=== PATIENT | male | born 1975 | race Caucasian/White ===

== ENCOUNTER 2017-10-05 16:59 | Emergency (ER) | payer SELFPAY ==
[~2017-10-05] VITALS: Ht 175.3 cm; Wt 77.1 kg
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
--- NOTE | 2017-10-05 17:49 | Diagnostic Imaging Report ---
PROCEDURE: CT head and CT cervical spine without contrast. TECHNIQUE: Multiple contiguous axial images were obtained through the brain and cervical spine without the use of intravenous contrast. Sagittal and coronal reformations through the cervical spine were then performed. INDICATION: Syncopal episode with fall and laceration to left frontal region. COMPARISON: None available. FINDINGS: CT HEAD: Left supraorbital focal scalp swelling and small subcutaneous hematoma. There is no acute skull fracture. No acute intracranial hemorrhage. Basilar cisterns remain widely patent. No evidence of a territorial infarct. No hydrocephalus or space-occupying mass. Mastoid air cells are clear. Paranasal sinuses are also clear. CT CERVICAL SPINE: There is no acute fracture or traumatic malalignment in the cervical spine. Visualized aspects of the thyroid are normal. No cervical lymphadenopathy. No evidence of high-grade/critical spinal stenosis. Craniocervical junction is normal in alignment. IMPRESSION: 1. No acute intracranial hemorrhage or acute skull fracture. 2. No acute fracture or traumatic malalignment of the cervical spine. 3. Left supraorbital scalp swelling with small subcutaneous hematoma. Dictated by: Dictated on workstation # [id number]
[2017-10-05] MEDS ORDERED: RX-ONDANSETRON 4 MG ODT (ZOFRAN) PPK #4 PO STA (17:53)
[2017-10-05 17:56] VITALS: BP 142/98
== END 2017-10-05 17:56 | disposition home or self-care (01) ==
LOC: ER 17:00
DX: S06.0X9A Concussion with loss of consciousness of unspecified duration, initial encounter (principal); W17.89XA Other fall from one level to another, initial encounter
CPT/HCPCS: 70450; 72125; 99283

== ENCOUNTER 2021-07-04 12:47 | Outpatient (CLI) | payer MEDICAID, OTHER ==
[~2021-07-04] VITALS: Ht 175.3 cm; Wt 79.3 kg
[2021-07-04] MEDS ORDERED: LAMO100T65 PO (14:53)
[2021-07-04] MEDS ORDERED: FLUO10CA31 PO (14:53)
[2021-07-04] MEDS ORDERED: CLON1TAB PO (14:53)
[2021-07-04] MEDS ORDERED: FOLI-88 PO (14:54)
== END 2021-07-04 16:01 | disposition home or self-care (01) ==
LOC: PREOP 12:47
PROVIDERS: ATTEND Surgery
DX: Z01.818 Encounter for other preprocedural examination (principal)

== ENCOUNTER 2021-07-11 10:21 | Day surgery (SDC) | payer MEDICAID, OTHER ==
[~2021-07-11] VITALS: Ht 175.3 cm; Wt 79.3 kg
[~2021-07-11 10:21] MED LIST: CLON1TAB PO; FLUO10CA31 PO; FOLI-88 PO; LAMO100T65 PO
[2021-07-11] MEDS ORDERED: LACTATED RINGERS 1,000 ML IV ONE (10:24)
[2021-07-11] MEDS ORDERED: LACTATED RINGERS 1,000 ML IV STA (10:26)
[2021-07-11] MEDS ORDERED: LIDOCAINE JELLY 2% 6 ML SYRINGE MM PRN (10:30)
[2021-07-11 10:32] VITALS: BP 117/74
[2021-07-11] MEDS ORDERED: MIDAZOLAM 2 MG/2 ML (VERSED) VIAL ONE (10:32)
[2021-07-11] MEDS ORDERED: PROPOFOL INJECTION 50 ML IV ONE ×2 (10:32→11:05)
--- NOTE | 2021-07-11 10:32 | Progress Note-Pre Operative ---
Pre-Operative Progress Note H&P Reviewed The H&P was reviewed, patient examined and no changes noted. Date Seen by Provider: Jul 11, 2021 Time Seen by Provider: 10: Date H&P Reviewed: Jul 11, 2021 Time H&P Reviewed: : Pre-Operative Diagnosis: screening colo/FH ARAVIND CHA MD Jul 11, 2021 10:32
--- NOTE | 2021-07-11 10:33 | Discharge Inst-Surgical ---
D/C Lap Instructions-STARLA Follow Up Activity as tolerated High Fiber Diet 25g or more per day Avoid Alcohol, Caffeine, Spicy [place] and Acid foods. Drink 64 fluid oz or more of fluids per day. Symptoms to Report: Fever over 101 degree F, Nausea/Vomiting If any problems/questions: Contact your physician or go to Emergency Room ARAVIND CHA MD Jul 11, 2021 10:33
[2021-07-11] MEDS ORDERED: ONDANSETRON 4 MG (ZOFRAN) ORAL DISSOLVE TAB PO PRN (10:45)
[2021-07-11] MEDS ORDERED: ONDANSETRON 4 MG/2 ML (SDV) Z0FRAN IVP PRN (10:45)
[2021-07-11 11:20] VITALS: BP 108/64
[2021-07-11 11:25] VITALS: BP 95/53
--- NOTE | 2021-07-11 11:28 | Progress Note-Post Operative ---
Post-Operative Progess Note Surgeon (s)/Laser Machine Operator (s) Surgeon ARAVIND CHA MD Laser Machine Operator: none Pre-Operative Diagnosis screening colo/FH Post-Operative Diagnosis mild chronic stage 2 ext and int hemorrhoids. Procedure & Operative Findings Date of Procedure 07/11/21 Procedure Performed/Findings colonoscopy Anesthesia Type mac Estimated Blood Loss Estimated blood loss (mL): minimal Specimens/Packing Specimens Removed none ARAVIND CHA MD Jul 11, 2021 11:28
[2021-07-11 11:29] VITALS: BP 96/56
[2021-07-11 11:35] VITALS: BP_SYST 102; BP_SYST 97; BP_DIAS 60; BP_DIAS 61
[2021-07-11 12:01] VITALS: BP 100/71
--- NOTE | 2021-07-11 14:45 | Anesthesia-General Post-Op ---
MAC Patient Condition Mental Status/LOC: Same as Preop Cardiovascular: Satisfactory Nausea/Vomiting: Absent Respiratory: Satisfactory Pain: Controlled Complications: Absent Post Op Complications Complications None Follow Up Care/Instructions Patient Instructions None needed. Anesthesiology Discharge Order Discharge Order Patient is doing well, no complaints, stable vital signs, no apparent adverse anesthesia problems. No complications reported per nursing. ROSANNA AGUIRRE CRNA Jul 11, 2021 14:45
--- NOTE | 2021-07-11 16:58 | OPERATIVE REPORT ---
DATE OF SERVICE: 07/11/2021 ATTENDING PRIMARY CARE PHYSICIAN: Diana Brewer DO PREOPERATIVE DIAGNOSIS: Screening colonoscopy with family history of colon cancer. POSTOPERATIVE DIAGNOSIS: Mild chronic stage II external and internal hemorrhoids. PROCEDURE: Colonoscopy. SURGEON: Aravind Perez MD ANESTHESIA: Monitored anesthesia care. ESTIMATED BLOOD LOSS: Minimal. FINDINGS: Same as postoperative diagnosis. DISPOSITION: The patient tolerated the procedure well. INDICATIONS: The patient is a 45-year-old male in need of screening colonoscopy. His last colonoscopy was 5 years ago where he was found to have a few polyps, which were biopsied and found to be benign. He does report a family history of colon cancer with his father having the disease. He does not report any major issues with diarrhea, no constipation as well as no red blood per rectum nor any dark tarry stools. DESCRIPTION OF PROCEDURE: The patient was brought to the endoscopy suite, laid in the left lateral decubitus position. After adequate IV pain and sedative medications and monitored anesthesia care, the mouthpiece was applied. A digital rectal examination was performed, which revealed chronic stage II external and internal hemorrhoids, not actively edematous nor inflamed and no bleeding. Normal sphincter tone was felt and there were no palpable masses. The endoscope was then intubated into the anus and rectum gently insufflated. The endoscope was then advanced through the valves of [place] of the rectum with no polyps or any neoplasms identified. Through the sigmoid colon, no diverticulosis identified. The endoscope was then advanced and remainder of the descending, transverse and ascending colon to the cecum, which were normal. There were no polyps or any neoplasms identified throughout the colon or rectum. The endoscope was then slowly withdrawn while taking a second look and suctioning of residual air with no additional findings. The patient tolerated the procedure well. We will recommend continued medical management with incorporation of high-fiber diet with a fiber supplement, which should equal or exceed 30 grams daily as well as significant amounts of water to promote soft stools on a daily basis. Due to first-degree family history of colon cancer, we will recommend a colonoscopy approximately every 5 years, which would take him at around age 51. Job ID: [id number] DocumentID: [id number] Dictated Date: 07/11/2021 11:24:10 Automobile Repossessor Date: 07/11/2021 16:57:42 Dictated By: ARAVIND PEREZ MD
== END 2021-07-11 12:02 | disposition home or self-care (01) ==
LOC: ENDO 10:21
PROVIDERS: ATTEND Surgery
DX: Z12.11 Encounter for screening for malignant neoplasm of colon (principal); K64.1 Second degree hemorrhoids; K64.4 Residual hemorrhoidal skin tags; F32.9 Major depressive disorder, single episode, unspecified; F41.9 Anxiety disorder, unspecified; Z87.891 Personal history of nicotine dependence; Z79.899 Other long term (current) drug therapy; Z80.0 Family history of malignant neoplasm of digestive organs; Z80.1 Family history of malignant neoplasm of trachea, bronchus and lung

== ENCOUNTER → 2021-08-13 | Outpatient (CLI) | payer OTHER ==
[~2021-08-13] MED LIST changes: -FLUO10CA31 PO; +FLUO10CA33 PO
--- NOTE | 2021-08-13 08:26 | Diagnostic Imaging Report ---
EXAMINATION: US Abdomen complete. TECHNIQUE: Multiple real-time grayscale images were obtained over the right upper quadrant in various projections. HISTORY: LLQ PAIN COMPARISON: None available. FINDINGS: Pancreas: The visualized portions of the pancreas are normal. Liver: The liver is normal in echogenicity and contour. No focal lesions are seen. The portal vein is patent with hepatopetal flow. Gallbladder and biliary tree: Gallbladder is normal without wall thickening, pericholecystic fluid, or sonographic Kumar sign. There is no biliary ductal dilation. The common duct is obscured by overlying bowel gas. Kidneys: The right kidney is normal without hydronephrosis. The left kidney is normal without hydronephrosis. Spleen: The spleen is normal. Aorta and IVC: The visualized aorta and inferior vena cava are normal. Fluid: No ascites is seen. Other: No focal abnormality within the left lower quadrant in the region of concern. IMPRESSION: 1. Unremarkable abdominal ultrasound. Dictated by: Dictated on workstation # [id number]
== END ==
LOC: RAD 07:15
PROVIDERS: ATTEND Surgery
DX: R10.32 Left lower quadrant pain (principal)
CPT/HCPCS: 76700

== ENCOUNTER 2023-04-14 07:14 | Emergency (ER) | payer BC, OTHER ==
[~2023-04-14] VITALS: Ht 175.2 cm; Wt 74.8 kg
[2023-04-14] MEDS ORDERED: LORazepam 0.5 MG (ATIVAN) TABLET PO STA (07:23)
[2023-04-14] MEDS ORDERED: ONDANSETRON 4 MG/2 ML (SDV) Z0FRAN IVP ONE (07:30)
[2023-04-14] MEDS ORDERED: OLANZapine 5 MG ODT (ZyPREXA ZYDIS) SL ONE ×2 (07:30→08:45)
[2023-04-14] MEDS ORDERED: NS IV 1000 ML 1,000 ML IV SCH (07:30)
[2023-04-14 07:50] LABS: BASOPHILS # (AUTO) 0.1 10^3/uL (0.0-0.1); BASOPHILS % (AUTO) 0 % (0-10); EOSINOPHILS # (AUTO) 0.1 10^3/uL (0.0-0.3); EOSINOPHILS % (AUTO) 0 % (0-10); HEMATOCRIT 43 % (40-54); HEMOGLOBIN 15.2 g/dL (13.3-17.7); LYMPHOCYTES # (AUTO) 1.8 10^3/uL (1.0-4.0); LYMPHOCYTES % (AUTO) 8 % (12-44); MEAN CORPUSCULAR HEMOGLOBIN 30 pg (25-34); MEAN CORPUSCULAR HGB CONC 35 g/dL (32-36); MEAN CORPUSCULAR VOLUME 86 fL (80-99); MONOCYTES # (AUTO) 1.2 10^3/uL (0.0-1.0); MONOCYTES % (AUTO) 5 % (0-12); NEUTROPHILS % (AUTO) 86 % (42-75); PLATELET COUNT 315 10^3/uL (130-400); WHITE BLOOD COUNT 22.2 10^3/uL (4.3-11.0)
[2023-04-14 08:01] LABS: ALBUMIN 4.7 GM/DL (3.2-4.5); CHLORIDE 104 MMOL/L (98-107); POTASSIUM 3.3 MMOL/L (3.6-5.0); SODIUM 139 MMOL/L (135-145)
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
[2023-04-14 08:02] LABS: CALCIUM 9.7 MG/DL (8.5-10.1); LYMPHOCYTES % (MANUAL) 12 %; MONOCYTES % (MANUAL) 6 %; NEUTROPHILS % (MANUAL) 82 %; PLATELET ESTIMATE ADEQUATE; RBC MORPH NORMAL
[2023-04-14 08:04] LABS: GLUCOSE 169 MG/DL (70-105); TOTAL PROTEIN 7.5 GM/DL (6.4-8.2)
[2023-04-14 08:05] LABS: BILIRUBIN,TOTAL 2.1 MG/DL (0.1-1.0); CARBON DIOXIDE 21 MMOL/L (21-32)
[2023-04-14 08:07] LABS: ALKALINE PHOSPHATASE 130 U/L (40-136); CREATININE SERUM 0.98 MG/DL (0.60-1.30); GFR ESTIMATED 96
[2023-04-14 08:09] LABS: BUN/CREATININE RATIO 11
[2023-04-14 08:10] LABS: ALANINE AMINOTRANSFERASE 29 U/L (0-55); SALICYLATE < 5.0 MG/DL (5.0-20.0)
[2023-04-14 08:11] LABS: CREATINE KINASE 3743 U/L (30-200)
[2023-04-14 08:19] LABS: ACETAMINOPHEN < 10 UG/ML (10-30)
[2023-04-14] MEDS ORDERED: Tetanus/Diphtheria/Pertussis (Acell) ADULT Vaccine 0.5 ML IM ONE (08:30)
[2023-04-14] MEDS ORDERED: TRIM/SULFAMETH 160/800 (SEPTRA DS) TAB PO ONE (08:30)
[2023-04-14 08:31] LABS: TSH (THYROID ANALYZER) 2.31 UIU/ML (0.35-4.94)
[2023-04-14] MEDS ORDERED: LACTATED RINGERS 1,000 ML IV ONE (08:45)
--- NOTE | 2023-04-14 09:01 | Diagnostic Imaging Report ---
CT HEAD WO Date: 04/14/2023 8:57 AM Clinical Indication: Head Trauma Comparison: Headache after trauma. Technique: 5 mm axial tomographic images were obtained of the head without contrast. These were viewed on brain and bone windows. One or more of the following dose reduction techniques were utilized: Automated exposure control (AEC), Adjustment of mA and/or kV according to patient size, Use of iterative reconstruction technique such as ASiR, CT scan done according to ALARA and image gently/image wisely Findings: The brain parenchyma is normal in attenuation. No intra- or extra-axial mass or fluid collection. No acute hemorrhage. The ventricles are normal in size, shape, and morphology. The shelton-white matter junction is normal. The subarachnoid cisterns are patent. The visualized paranasal sinuses are normal. The visualized portions of the orbits and globes are normal. The mastoid air cells are clear. The head kiln operator topogram shows no lytic lesion or fracture. Impression: No acute intracranial hemorrhage. No large vascular territory hardwick-white loss. No intracranial mass, midline shift, or hydrocephalus. Dictated by: Dictated on workstation # [id number]
[2023-04-14] MEDS ORDERED: NS IV 1000 ML 1,000 ML IV STA (10:04)
[2023-04-14 10:22] LABS: BILIRUBIN,URINE NEGATIVE (NEGATIVE); CLARITY,URINE SL CLOUDY; COLOR,URINE YELLOW; GLUCOSE, URINE (UA) NEGATIVE (NEGATIVE); KETONES,URINE 3+ (NEGATIVE); LEUKOCYTE ESTERASE ,URINE NEGATIVE (NEGATIVE); NITRITE,URINE NEGATIVE (NEGATIVE); PH,URINE 6.5 (5-9); PROTEIN,URINE NEGATIVE (NEGATIVE)
[2023-04-14 10:35] LABS: AMPHETAMINE SCREEN, URINE NEGATIVE (NEGATIVE); BARBITURATE SCREEN URINE NEGATIVE (NEGATIVE); BENZODIAZEPINES SCREEN URINE NEGATIVE (NEGATIVE); CANNABINOID SCREEN, URINE POSITIVE (NEGATIVE); COCAINE SCREEN URINE NEGATIVE (NEGATIVE); METHADONE STAT NEGATIVE (NEGATIVE); OPIATE SCREEN URINE NEGATIVE (NEGATIVE); OXYCODONE STAT NEGATIVE (NEGATIVE); PROPOXYPHENE STAT NEGATIVE (NEGATIVE); TRICYCLIC ANTIDEPRESSANTS SCRE NEGATIVE (NEGATIVE)
[2023-04-14 10:52] LABS: BACTERIA,URINE NEGATIVE /HPF; SQUAMOUS EPITHELIAL CELL,UR RARE /HPF
[2023-04-14 20:42] VITALS: BP 135/79
== END 2023-04-14 20:42 ==
LOC: EDUNIT# 07:14 → ER 07:15
DX: S80.02XA Contusion of left knee, initial encounter (principal); S80.01XA Contusion of right knee, initial encounter; S60.212A Contusion of left wrist, initial encounter; S60.211A Contusion of right wrist, initial encounter; S40.212A Abrasion of left shoulder, initial encounter; S40.211A Abrasion of right shoulder, initial encounter; T79.6XXA Traumatic ischemia of muscle, initial encounter; F31.9 Bipolar disorder, unspecified; F12.959 Cannabis use, unspecified with psychotic disorder, unspecified; F23 Brief psychotic disorder; D72.829 Elevated white blood cell count, unspecified; E87.6 Hypokalemia; R74.8 Abnormal levels of other serum enzymes; R82.4 Acetonuria; R00.0 Tachycardia, unspecified; R73.9 Hyperglycemia, unspecified; Z23 Encounter for immunization; Z87.891 Personal history of nicotine dependence; Z20.822 Contact with and (suspected) exposure to COVID-19; Y35.891A Legal intervention involving other specified means, law enforcement official injured, initial encounter
CPT/HCPCS: 70450; 80053; 80306; 81000; 82550; 84443; 85007; 85027; 86141; 87636; 93005; G0480 ×3; 36415; 80320; 80329; 90715